=== PATIENT | male | born 1970 | race Caucasian/White ===

== ENCOUNTER 2017-01-11 14:36 | Emergency (ER) | payer MEDICAID | END 2017-01-11 15:32 | disposition home or self-care (01) | DX: J01.11 Acute recurrent frontal sinusitis (principal); R03.0 Elevated blood-pressure reading, without diagnosis of hypertension; Z87.891 Personal history of nicotine dependence ==

== ENCOUNTER 2017-04-03 09:59 | Emergency (ER) | payer MEDICAID ==
--- NOTE | 2017-04-03 10:09 | ED Physician Documentation ---
PD HPI URI - Stated complaint Stated Complaint: HEADACHE/BODY ACHES - History obtained from History obtained from: Patient - History of Present Illness Timing - onset: How many weeks ago (1) Timing duration: Weeks (1) Timing details: Gradual onset, Waxing and waning Associated symptoms: Nasal congestion, Sinus pain. No: Fever, Chills, Ear pain , Sore throat, Dry cough Contributing factors: No: Sick contact, Travel, Immunocompromised Similar symptoms before: Has not had sx before Recently seen: Not recently seen Review of Systems Constitutional: denies: Fever, Chills Ears: denies: Loss of hearing, Ear pain Nose: reports: Rhinorrhea / runny nose (clear mild), Sinus pressure / pain Throat: denies: Sore throat Respiratory: denies: Cough GI: denies: Nausea, Vomiting PD PAST MEDICAL HISTORY - Past Medical History Musculoskeletal: Chronic back pain - Past Surgical History Past Surgical History: No - Present Medications Home Medications: Ambulatory Orders Medication Instructions Recorded Confirmed Dexamethasone [Decadron] 4 mg PO DAILY #5 tablet 04/03/17 HYDROcod/ACETAM 5/325 [[place] 5/325] 1 tab PO Q6H PRN #15 tablet 04/03/17 Sodium Chloride [Saline Mist] 2 spr NS QID #1 bottle 04/03/17 - Allergies Allergies/Adverse Reactions: Allergies Allergy/AdvReac Type Severity Reaction Status Date / Time No Known Drug Allergies Allergy Verified 04/03/17 10:09 - Social History Does the pt smoke?: No Smoking Status: Former smoker Does the pt drink ETOH?: Yes Does the pt have substance abuse?: No - POLST Patient has POLST: No PD ED PE NORMAL - Vitals Vital signs reviewed: Yes - General General: 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, No acute distress, Well developed/nourished - HEENT HEENT: Ears normal, Moist mucous membranes, Pharynx benign, Other (no sinus tenderness to percussion) - Neck Neck: Supple, no meningeal sign, No adenopathy - Cardiac Cardiac: RRR, No murmur - Respiratory Respiratory: Clear bilaterally Results - Vitals Vitals: Vital Signs - 24 hr 04/03/17 04/03/17 10:07 10:49 Temperature 37.1 C Heart Rate 97 80 Respiratory 14 16 Rate Blood Pressure 125/82 H 136/77 H O2 Saturation 97 96 Oxygen O2 Source Room air PD MEDICAL DECISION MAKING - ED course Complexity details: considered differential, d/w patient Departure - Departure Disposition: 01 Home, Self Care Clinical Impression: Acute inflammation of sinus Qualifiers: Sinusitis location: frontal Recurrence: non-recurrent Qualified Code(s): J01.10 - Acute frontal sinusitis, unspecified Condition: Stable Record reviewed to determine appropriate education?: Yes Instructions: ED Sinusitis No Abx Follow-Up: Cori Kearney ARNP [Primary Care Provider] - Prescriptions: Dexamethasone [Decadron] 4 mg PO DAILY #5 tablet HYDROcod/ACETAM 5/325 [[place] 5/325] 1 tab PO Q6H PRN #15 tablet PRN Reason: Pain Sodium Chloride [Saline Mist] 2 spr NS QID #1 bottle Comments: Saline nasal spray both nostrils 4 times a day at least 2 moisturizing cleanse the nasal passage and sinus openings. Decadron daily for 5 more days to reduce inflammation. Add Tylenol or pain medicine as needed. Recheck with primary care if not better over the next 3-5 days. Recheck if you develop signs of infection. Discharge Date/Time: 04/03/17 10:49
[2017-04-03] MEDS ORDERED: DEXAMETHASONE 10 MG/ML VIAL PO STA (10:34)
[2017-04-03] MEDS ORDERED: HYDROcod/ACETAM 5/325 MG TABLET PO STA (10:34)
[2017-04-03] MEDS ORDERED: HYDROcod/ACETAM 5/325 MG TABLET ONE (10:46)
[2017-04-03] MEDS ORDERED: DEXAMETHASONE 10 MG/ML VIAL ONE (10:46)
[2017-04-03 10:51] VITALS: BP 136/77
== END 2017-04-03 10:49 | disposition home or self-care (01) ==
LOC: ED 09:59
DX: J01.10 Acute frontal sinusitis, unspecified (principal); Z87.891 Personal history of nicotine dependence
CPT/HCPCS: 99283; A9270

== ENCOUNTER 2017-04-07 10:46 | Outpatient (CLI) | payer MEDICAID ==
--- NOTE | 2017-04-07 15:50 | XRAY Report ---
COMPLETE SINUS SERIES: 04/07/2017 CLINICAL HISTORY: History of sinusitis. FINDINGS: The visualized paranasal sinuses are clear. There is no mucosal thickening or air fluid le vels. The osseous structures are intact. The nasal septum is minimally deviated towards the right. IMPRESSION: NO EVIDENCE FOR ACUTE SINUSITIS. JOB #: [id number] EXT JOB #:[id number]
== END 2017-04-07 10:47 | disposition home or self-care (01) ==
LOC: DI 10:46
PROVIDERS: ATTEND Physician Assistant
DX: J01.90 Acute sinusitis, unspecified (principal)
CPT/HCPCS: 70220

== ENCOUNTER 2017-05-01 09:51 | Emergency (ER) | payer MEDICAID ==
--- NOTE | 2017-05-01 10:45 | ED Physician Documentation ---
PD HPI UPPER EXT INJURY - Stated complaint Stated Complaint: SHOULDER PX - Chief complaint Chief Complaint: Ext Problem - History obtained from History obtained from: Patient - History of Present Illness Location: Left, Shoulder Type of injury: Other (no particular injury but does a lot of lifting and heavy work.) Timing - onset: How many weeks ago (08/24) Timing - duration: Weeks Worsened by: Moving Associated symptoms: No: Weakness, Numbness, Swelling Contributing factors: No: Anticoagulated Similar symptoms before: Has not had sx before Recently seen: Not recently seen Review of Systems Nose: denies: Rhinorrhea / runny nose, Congestion Throat: denies: Sore throat Cardiac: denies: Chest pain / pressure, Palpitations Respiratory: denies: Dyspnea, Cough Skin: denies: Rash Neurologic: denies: Focal weakness, Numbness PD PAST MEDICAL HISTORY - Past Medical History Musculoskeletal: None, Chronic back pain - Past Surgical History Past Surgical History: No Ortho: Spine surgery - Present Medications Home Medications: Ambulatory Orders Medication Instructions Recorded Confirmed Sodium Chloride [Saline Mist] 2 spr NS QID #1 bottle 04/03/17 05/01/17 Dexamethasone [Decadron] 4 mg PO DAILY #5 tablet 05/01/17 HYDROcod/ACETAM 5/325 [[place] 5/325] 1 tab PO Q6H PRN #20 tablet 05/01/17 Naproxen 375 mg PO BID #20 tablet 05/01/17 - Allergies Allergies/Adverse Reactions: Allergies Allergy/AdvReac Type Severity Reaction Status Date / Time No Known Drug Allergies Allergy Verified 05/01/17 16:23 - Social History Does the pt smoke?: No Smoking Status: Former smoker Does the pt drink ETOH?: Yes Does the pt have substance abuse?: No - Immunizations Immunizations are current?: Yes - POLST Patient has POLST: No PD ED PE NORMAL - Vitals Vital signs reviewed: Yes - General General: 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, No acute distress, Well developed/nourished - Neck Neck: Supple, no meningeal sign, No bony TTP, No adenopathy - Cardiac Cardiac: RRR, No murmur - Respiratory Respiratory: Clear bilaterally - Derm Derm: Normal color, Warm and dry, No rash - Extremities Extremities: Other (left shoulder tender posteriorly. Pain with abduction, extension and internal rotation mostly. No obvious laxity with ROM movements. No rash nor sores. Some muscular tenderness suprascapular area. Left elbow with some tenderness lateral condyle but good ROM and has full extension and supination/pronation. ) - Neuro Neuro: 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, No motor deficit, No sensory deficit, Normal speech Results - Vitals Vitals: Vital Signs - 24 hr 05/01/17 05/01/17 09:54 12:00 Temperature 36.8 C 36.7 C Heart Rate 99 76 Respiratory 16 16 Rate Blood Pressure 135/97 H 133/65 H O2 Saturation 100 99 Oxygen O2 Source Room air - Rads (name of study) shoulder Radiology: EMP read contemporaneously (no acute process noted.) PD MEDICAL DECISION MAKING - ED course Complexity details: reviewed results, considered differential (sounds like rotator cuff tendonitis (and some elbow tendonitis as well) with pain on ROM and tender at posterior shoulder. ), d/w patient Departure - Departure Disposition: 01 Home, Self Care Clinical Impression: Rotator cuff tendinitis Qualifiers: Laterality: left Qualified Code(s): M75.82 - Other shoulder lesions, left shoulder Condition: Stable Record reviewed to determine appropriate education?: Yes Instructions: ED Tendinitis Rotator Cuff Follow-Up: Gorge Cee PA-C [Primary Care Provider] - Panfilo Amaral MD [Provider Admit Priv/Credential] - Prescriptions: Dexamethasone [Decadron] 4 mg PO DAILY #5 tablet Naproxen 375 mg PO BID #20 tablet HYDROcod/ACETAM 5/325 [[place] 5/325] 1 tab PO Q6H PRN #20 tablet PRN Reason: Pain Comments: Late use with the left shoulder and arm for a week or so. However do not guard it or sling it as it may stiffen up too much. Naproxen or ibuprofen twice daily for the next 7-10 days. Add dexamethasone steroid orally for 5 days. Add Tylenol or hydrocodone if needed for pain. Recheck with your primary care or better orthopedics if not better in the next week. It sounds like some inflammation of the rotator cuff tendons. You may have some old injury and there given your description of some looseness and discomfort at times. Follow- up with orthopedics can assess whether it needs any longer term treatment. Discharge Date/Time: 05/01/17 12:23
[2017-05-01] MEDS ORDERED: DEXAMETHASONE 10 MG/ML VIAL PO STA (11:09)
[2017-05-01] MEDS ORDERED: ACETAMINOPHEN 325 MG TABLET PO STA (11:09)
[2017-05-01] MEDS ORDERED: DEXAMETHASONE 10 MG/ML VIAL ONE (11:26)
[2017-05-01] MEDS ORDERED: ACETAMINOPHEN 325 MG TABLET PO ONE (11:26)
[2017-05-01 12:24] VITALS: BP 133/65
--- NOTE | 2017-05-01 20:55 | XRAY Preliminary Report ---
Exam: XR Shoulder 3 View LT IMPRESSION: Mild degenerative changes of the acromioclavicular joint. [facility] SITE ID: [id number]
--- NOTE | 2017-05-01 20:58 | XRAY Report ---
EXAM: LEFT SHOULDER RADIOGRAPHY EXAM DATE: 05/01/2017 12:04 PM. CLINICAL HISTORY: Shoulder pain for 2-3 weeks. COMPARISON: None. TECHNIQUE: 3 views. FINDINGS: Bones: There is no evidence of fracture. Small bone island is noted in the proximal humeral shaft. Joints: Mild degenerative changes of the acromioclavicular joint. Soft tissues: The visualized hemithorax is unremarkable. No soft tissue swelling. Surgical clips in t he left neck. IMPRESSION: Mild degenerative changes of the acromioclavicular joint. [facility] Referring Provider Line: [phone] SITE ID: [id number]
== END 2017-05-01 12:23 | disposition home or self-care (01) ==
LOC: ED 09:51
DX: M75.82 Other shoulder lesions, left shoulder (principal); Z87.891 Personal history of nicotine dependence
CPT/HCPCS: 99283

== ENCOUNTER 2017-05-01 16:17 | Emergency (ER) | payer MEDICAID ==
[2017-05-01] MEDS ORDERED: diazePAM INJ 5 MG/ML SYRINGE IVP STA (16:44)
--- NOTE | 2017-05-01 16:51 | ED Physician Documentation ---
PD HPI CHEST PAIN - Stated complaint Stated Complaint: HEART RACING - Chief complaint Chief Complaint: Cardiac - History obtained from History obtained from: Patient - History of Present Illness Timing - onset: Other (Seen earlier in the day for shoulder pain and given dexamethasone. About an hour ago started to feel panicky with a rapid heart rate and shortness of breath but no chest pain, pedal edema, cough, hemoptysis or wheezing. He has had panic attacks in the before and this feels similar.) Review of Systems Constitutional: denies: Fever, Chills Cardiac: denies: Chest pain / pressure, Pedal edema, Calf pain Respiratory: denies: Cough, Hemoptysis, Wheezing PD PAST MEDICAL HISTORY - Past Medical History Past Medical History: Yes Psych: Anxiety Musculoskeletal: Chronic back pain - Past Surgical History Past Surgical History: No Ortho: Spine surgery - Present Medications Home Medications: Ambulatory Orders Medication Instructions Recorded Confirmed Sodium Chloride [Saline Mist] 2 spr NS QID #1 bottle 04/03/17 05/01/17 Dexamethasone [Decadron] 4 mg PO DAILY #5 tablet 05/01/17 HYDROcod/ACETAM 5/325 [[place] 5/325] 1 tab PO Q6H PRN #20 tablet 05/01/17 Lorazepam [Ativan] 1 mg PO TID PRN #7 tablet 05/01/17 Naproxen 375 mg PO BID #20 tablet 05/01/17 - Allergies Allergies/Adverse Reactions: Allergies Allergy/AdvReac Type Severity Reaction Status Date / Time No Known Drug Allergies Allergy Verified 05/01/17 16:23 - Social History Does the pt smoke?: No Smoking Status: Former smoker Does the pt drink ETOH?: Yes Does the pt have substance abuse?: No - Immunizations Immunizations are current?: Yes - POLST Patient has POLST: No PD ED PE NORMAL - Vitals Vital signs reviewed: Yes - General General: 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, No acute distress - Neck Neck: Supple, no meningeal sign, No bony TTP - Cardiac Cardiac: Other (Tachycardic but regular without murmur) - Respiratory Respiratory: No respiratory distress, Clear bilaterally - Abdomen Abdomen: Non tender - Extremities Extremities: No edema, No calf tenderness / cord - Neuro Neuro: 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, Normal speech - Psych Psych: Normal mood, Normal affect Results - Vitals Vitals: Vital Signs - 24 hr 05/01/17 05/01/17 16:21 16:27 Temperature 37.3 C Heart Rate 138 H Respiratory 20 Rate Blood Pressure 159/114 H Blood Pressure 159/98 H [Left] Blood Pressure 159/114 H [Right] O2 Saturation 99 Oxygen O2 Source Room air - EKG (time done) 1637 Rate: Rate (enter#) (128) Rhythm: Sinus tachycardia Energy: Normal Intervals: Normal MO QRS: Normal Ischemia: Normal ST segments Computer interpretation: Agree with computer - Labs Labs: Laboratory Tests 05/01/17 05/01/17 05/01/17 16:30 16:30 16:30 WBC 6.4 RBC 5.15 Hgb 17.0 Hct 49.9 MCV 96.8 H MCH 33.0 H MCHC 34.1 RDW 13.8 Plt Count 349 MPV 9.3 Neut # 5.4 Lymph # 0.8 L Roberts # 0.1 Eos # 0.0 Baso # 0.0 Absolute Nucleated RBC 0.00 Nucleated RBCs 0.1 Manual Slide Review Indicated Platelet Estimate NORMAL (130-450,000) Platelet Morphology 2+ GIANT PLATELETS RBC Morph Micro Appear 1+ MACROCYTOSIS Sodium 138 Potassium 3.5 Chloride 103 Carbon Dioxide 25 Anion Gap 10.0 BUN 13 Creatinine 0.8 Estimated GFR (MDRD) 104 Glucose 151 H Calcium 9.3 Total Bilirubin 0.7 AST 57 H ALT 51 Alkaline Phosphatase 100 Troponin I < 0.04 Total Protein 7.9 Albumin 4.8 Globulin 3.1 Albumin/Globulin Ratio 1.5 Lipase 35 PD MEDICAL DECISION MAKING - ED course ED course: 47-year-old gentleman presents with an apparent panic attack, no clinical evidence for PE or primary heart issue. He has a variable sinus tachycardia and felt much better after the administration of IV Valium. Modestly elevated AST was noted and he has been drinking alcohol heavily and he was advised to decrease his alcohol use. Departure - Departure Disposition: 01 Home, Self Care Clinical Impression: Sinus tachycardia, Panic attack Condition: Good Record reviewed to determine appropriate education?: Yes Instructions: ED Panic Attack Prescriptions: Lorazepam [Ativan] 1 mg PO TID PRN #7 tablet PRN Reason: Anxiety Comments: Call your doctor to arrange a follow-up appointment, make the next available appointment. In the interim, return anytime if worse or if new symptoms develop. Your blood pressure was elevated today on check into the emergency department. This does not mean that you have hypertension, it is a common phenomenon to come to the emergency department and have elevated blood pressure. I recommend that she see your primary care physician within the week to have it rechecked when you are feeling better.
[2017-05-01 17:03] LABS: ALBUMIN/GLOBULIN RATIO 1.5 (1.0-2.2); BILIRUBIN,TOTAL 0.7 mg/dL (0.2-1.0); CALCIUM 9.3 mg/dL (8.5-10.3); CREATININE 0.8 mg/dL (0.6-1.2); POTASSIUM 3.5 mmol/L (3.5-5.0); TOTAL PROTEIN 7.9 g/dL (6.7-8.2)
[2017-05-01] MEDS ORDERED: diazePAM INJ 5 MG/ML SYRINGE ONE (17:05)
[2017-05-01 17:13] LABS: BASOPHILS % (AUTO) 0.3 %; EOSINOPHILS % (AUTO) 0.1 %; HCT - HEMATOCRIT 49.9 % (42.0-52.0); LYMPHOCYTES # (AUTO) 0.8 10^3/uL (1.5-3.5); LYMPHOCYTES % (AUTO) 13.2 %; MEAN CORPUSCULAR HGB CONC 34.1 g/dL (32.0-36.0); MEAN CORPUSCULAR VOLUME 96.8 fL (80.0-94.0); MEAN PLATELET VOLUME 9.3 fL (7.4-11.4); MONOCYTES # (AUTO) 0.1 10^3/uL (0.0-1.0); MONOCYTES % (AUTO) 1.6 %; NEUTROPHILS # (AUTO) 5.4 10^3/uL (1.5-6.6); NEUTROPHILS % (AUTO) 84.8 %; NUCLEATED RED BLOOD CELLS AUTO 0.1 /100WBC; PLATELET ESTIMATE, MANUAL NORMAL (130-450,000) (NORMAL); PLATELET MORPHOLOGY 2+ GIANT PLATELETS (NORMAL); RED BLOOD COUNT 5.15 10^6/uL (4.70-6.10); RED CELL DISTRIBUTION WIDTH 13.8 % (12.0-15.0); UNCORRECTED WHITE BLOOD COUNT 6.4 x10^3/uL; WHITE BLOOD COUNT 6.4 x10^3/uL (4.8-10.8)
[2017-05-01 17:44] VITALS: BP 144/89
== END 2017-05-01 17:49 | disposition home or self-care (01) ==
LOC: ED 16:17
DX: R00.0 Tachycardia, unspecified (principal); F41.0 Panic disorder [episodic paroxysmal anxiety]; M75.82 Other shoulder lesions, left shoulder; R03.0 Elevated blood-pressure reading, without diagnosis of hypertension; G89.29 Other chronic pain; Z87.891 Personal history of nicotine dependence
CPT/HCPCS: 36415; 73030; 80053; 83690; 84484; 85025; 93005; 96374; 99283; A9270

== ENCOUNTER 2017-05-19 15:30 | Emergency (ER) | payer MEDICAID ==
--- NOTE | 2017-05-19 18:58 | ED Physician Documentation ---
PD HPI HEADACHE - Stated complaint Stated Complaint: OATES - Chief complaint Chief Complaint: Neuro - History obtained from History obtained from: Patient - History of Present Illness Timing - onset: Other (For the last few months he has been having frequent headaches, he feels like they are stress related. Sometimes he wakes up with them sometimes they are starting during the middle of the day. It is a knifelike pain that goes from his occiput through to his forehead in the middle. He is a little light sensitive when it happens but he is not nauseous. There is no associated fever. Many days he does not have a headache at all. He is under a lot of personal stress with multiple people moving into his house which is small to start with.) Review of Systems Constitutional: denies: Fever, Chills Nose: denies: Rhinorrhea / runny nose, Congestion Cardiac: denies: Chest pain / pressure, Palpitations Respiratory: denies: Dyspnea PD PAST MEDICAL HISTORY - Past Medical History Past Medical History: Yes Psych: Anxiety Musculoskeletal: Chronic back pain - Past Surgical History Past Surgical History: Yes Ortho: Spine surgery - Present Medications Home Medications: Ambulatory Orders Medication Instructions Recorded Confirmed Sodium Chloride [Saline Mist] 2 spr NS QID #1 bottle 04/03/17 05/01/17 Dexamethasone [Decadron] 4 mg PO DAILY #5 tablet 05/01/17 HYDROcod/ACETAM 5/325 [[place] 5/325] 1 tab PO Q6H PRN #20 tablet 05/01/17 Lorazepam [Ativan] 1 mg PO TID PRN #7 tablet 05/01/17 Naproxen 375 mg PO BID #20 tablet 05/01/17 Codeine/Butalbital/ASA/Caffein 1 each PO Q6H PRN #15 capsule 05/19/17 [Fiorinal with Codeine #3 Cap] - Allergies Allergies/Adverse Reactions: Allergies Allergy/AdvReac Type Severity Reaction Status Date / Time No Known Drug Allergies Allergy Verified 05/19/17 15:35 - Social History Does the pt smoke?: No Smoking Status: Never smoker Does the pt drink ETOH?: Yes Does the pt have substance abuse?: No - Immunizations Immunizations are current?: Yes - POLST Patient has POLST: No PD ED PE NORMAL - Vitals Vital signs reviewed: Yes - General General: 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, No acute distress - HEENT HEENT: PERRL, EOMI, Ears normal, Pharynx benign - Neck Neck: Supple, no meningeal sign, No bony TTP - Neuro 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: 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, 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, No motor deficit, No sensory deficit, Normal speech - Psych Psych: Normal mood, Normal affect Results - Vitals Vitals: Vital Signs - 24 hr 05/19/17 05/19/17 15:33 19:21 Temperature 37 C 37.1 C Heart Rate 87 63 Respiratory 20 16 Rate Blood Pressure 137/93 H 119/87 H O2 Saturation 99 98 Oxygen O2 Source Room air - Rads (name of study) CT Head Radiology: EMP read contemporaneously (NAD) PD MEDICAL DECISION MAKING - ED course ED course: New headaches that do not fit a pattern of subarachnoid hemorrhage or infection but could be mass so CT done and negative Departure - Departure Disposition: 01 Home, Self Care Clinical Impression: Head ache Qualifiers: Headache type: tension-type Headache chronicity pattern: acute headache Intractability: not intractable Qualified Code(s): G44.209 - Tension-type headache, unspecified, not intractable Condition: Good Record reviewed to determine appropriate education?: Yes Instructions: ED Cephalgia Unspecified Prescriptions: Codeine/Butalbital/ASA/Caffein [Fiorinal with Codeine #3 Cap] 1 each PO Q6H PRN #15 capsule PRN Reason: Headache Comments: Your blood pressure was elevated today on check into the emergency department. This does not mean that you have hypertension, it is a common phenomenon to come to the emergency department and have elevated blood pressure. I recommend that she see your primary care physician within the week to have it rechecked when you are feeling better. Call your doctor to arrange a follow-up appointment, make the next available appointment. In the interim, return anytime if worse or if new symptoms develop. Forms: Activity restrictions Discharge Date/Time: 05/19/17 20:07
[2017-05-19 19:23] VITALS: BP 119/87
--- NOTE | 2017-05-19 19:38 | CT Preliminary Report ---
Exam: CT Head W/O IMPRESSION: No acute intracranial abnormality. [facility] SITE ID: [id number]
--- NOTE | 2017-05-19 19:51 | CT Report ---
EXAM: CT HEAD EXAM DATE: 05/19/2017 07:18 p.m. CLINICAL HISTORY: New headaches. COMPARISON: None. TECHNIQUE: Multiaxial CT images were obtained from the foramen magnum to the vertex. IV contrast: Non e. Reformats: Coronal. In accordance with CT protocol optimization, one or more of the following dose reduction techniques w ere utilized for this exam: automated exposure control, adjustment of mA and/or KV based on patient s ize, or use of iterative reconstructive technique. FINDINGS: Parenchyma: No intraparenchymal hemorrhage. No evidence of mass, midline shift, or CT findings of inf arction. Smyth-white differentiation is distinct. Extraaxial Spaces: Normal for age. No subdural or epidural collections identified. Ventricles: Normal in size and position. Sinuses: Imaged paranasal sinuses, orbits, and mastoids show no significant abnormality. Bones: No evidence of fracture or calvarial defect. Other: None. IMPRESSION: No acute intracranial abnormality. [facility] Referring Provider Line: [phone] SITE ID: [id number]
== END 2017-05-19 20:07 | disposition home or self-care (01) ==
LOC: ED 15:30
DX: G44.209 Tension-type headache, unspecified, not intractable (principal); R03.0 Elevated blood-pressure reading, without diagnosis of hypertension
CPT/HCPCS: 70450; 99283

== ENCOUNTER 2017-11-26 15:23 | Emergency (ER) | payer MEDICAID ==
[2017-11-26] MEDS ORDERED: MAG HYDROX/AL HYDROX/SIMETH 30 ML UDC PO STA (15:58)
[2017-11-26] MEDS ORDERED: LIDOCAINE VISCOUS 2% 15 ML UDC MM STA (15:58)
[2017-11-26] MEDS ORDERED: ONDANSETRON ODT 4 MG TABLET TL STA (15:58)
--- NOTE | 2017-11-26 16:00 | ED Physician Documentation ---
History of Present Illness - Stated complaint Stated Complaint: COUGH, UPSET STOMACH - Chief complaint Chief Complaint: General - History obtained from History obtained from: Patient - History of Present Illness Timing: Other (For the last 6 weeks he has had an upset stomach with central abdominal pain, nausea and occasional diarrhea. It is not associated with fevers, night sweats, or weight loss. He also has nasal congestion and postnasal drip with it. He has missed a couple of days of work. Pain is worse after eating.) Review of Systems Constitutional: reports: Fatigue. denies: Fever, Chills, Myalgias, Weight Loss Nose: reports: Rhinorrhea / runny nose, Congestion Throat: reports: Sore throat Respiratory: reports: Cough GI: reports: Abdominal Pain, Nausea, Diarrhea. denies: Vomiting, Constipation, Hematemesis, Bloody / black stool PD PAST MEDICAL HISTORY - Past Medical History Cardiovascular: None Respiratory: None Neuro: None Endocrine/Autoimmune: None GI: None : None HEENT: None Psych: Anxiety Musculoskeletal: Chronic back pain Derm: None - Past Surgical History Past Surgical History: Yes Ortho: Spine surgery - Present Medications Home Medications: Ambulatory Orders Medication Instructions Recorded Confirmed HYDROcod/ACETAM 5/325 [[place] 5/325] 1 tab PO Q6H PRN #20 tablet 05/01/17 Codeine/Butalbital/ASA/Caffein 1 each PO Q6H PRN #15 capsule 05/19/17 [Fiorinal with Codeine #3 Cap] Omeprazole [PriLOSEC] 20 mg PO DAILY #14 capsule 11/26/17 - Allergies Allergies/Adverse Reactions: Allergies Allergy/AdvReac Type Severity Reaction Status Date / Time No Known Drug Allergies Allergy Verified 11/26/17 15:37 - Social History Does the pt smoke?: No Smoking Status: Never smoker Does the pt drink ETOH?: Yes Does the pt have substance abuse?: No - Immunizations Immunizations are current?: Yes - POLST Patient has POLST: No PD ED PE NORMAL - Vitals Vital signs reviewed: Yes - General General: 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, No acute distress - HEENT HEENT: PERRL, EOMI, Pharynx benign - Neck Neck: Supple, no meningeal sign, No bony TTP - Cardiac Cardiac: RRR, No murmur - Respiratory Respiratory: No respiratory distress, Clear bilaterally - Abdomen Abdomen: Normal bowel sounds, Soft, Non tender - Back Back: No CVA TTP, No spinal TTP - Derm Derm: Normal color, Warm and dry - Extremities Extremities: No edema, No calf tenderness / cord - Neuro Neuro: 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, Normal speech Results - Vitals Vitals: Vital Signs - 24 hr 11/26/17 15:33 Temperature 36.8 C Heart Rate 101 H Respiratory 16 Rate Blood Pressure 127/96 H O2 Saturation 96 Oxygen O2 Source Room air - Labs Labs: Laboratory Tests 11/26/17 11/26/17 16:14 16:14 WBC 5.1 RBC 4.59 L Hgb 15.5 Hct 44.1 MCV 96.2 H MCH 33.8 H MCHC 35.2 RDW 13.8 Plt Count 274 MPV 9.3 Neut # 2.7 Lymph # 1.8 Barry # 0.4 Eos # 0.1 Baso # 0.1 Absolute Nucleated RBC 0.01 Nucleated RBC % 0.2 WBC Morphology NORMAL APPEARANCE Platelet Estimate NORMAL (130-450,000) Platelet Morphology NORMAL APPEARANCE RBC Morph Micro Appear 1+ MACROCYTOSIS Sodium 130 L Potassium 3.8 Chloride 99 L Carbon Dioxide 23 Anion Gap 8.0 BUN 11 Creatinine 0.6 Estimated GFR (MDRD) 145 Glucose 107 H Calcium 8.4 L ALT 70 H Alkaline Phosphatase 118 Total Protein 5.5 L Albumin 3.4 Globulin 2.1 Albumin/Globulin Ratio 1.6 Lipase 30 PD MEDICAL DECISION MAKING - ED course ED course: Had excellent relief with Gi cocktail confirming gastritis or PUD. Departure - Departure Disposition: 01 Home, Self Care Clinical Impression: Abdominal pain Qualifiers: Abdominal location: generalized Qualified Code(s): R10.84 - Generalized abdominal pain Condition: Good Record reviewed to determine appropriate education?: Yes Instructions: ED PUD Vs Gastritis Prescriptions: Omeprazole [PriLOSEC] 20 mg PO DAILY #14 capsule Comments: Call your doctor to arrange a follow-up appointment, make the next available appointment. In the interim, return anytime if worse or if new symptoms develop. Your blood pressure was elevated today on check into the emergency department. This does not mean that you have hypertension, it is a common phenomenon to come to the emergency department and have elevated blood pressure. I recommend that you see your primary care physician within the week to have it rechecked when you are feeling better. Forms: Activity restrictions
[2017-11-26 16:25] LABS: BASOPHILS # (AUTO) 0.1 10^3/uL (0.0-0.1); BASOPHILS % (AUTO) 1.8 %; EOSINOPHILS # (AUTO) 0.1 10^3/uL (0.0-0.7); EOSINOPHILS % (AUTO) 1.5 %; HGB - HEMOGLOBIN 15.5 g/dL (14.0-18.0); LYMPHOCYTES # (AUTO) 1.8 10^3/uL (1.5-3.5); LYMPHOCYTES % (AUTO) 35.9 %; MEAN CORPUSCULAR HEMOGLOBIN 33.8 pg (27.0-31.0); MEAN CORPUSCULAR HGB CONC 35.2 g/dL (32.0-36.0); MEAN CORPUSCULAR VOLUME 96.2 fL (80.0-94.0); MEAN PLATELET VOLUME 9.3 fL (7.4-11.4); MONOCYTES # (AUTO) 0.4 10^3/uL (0.0-1.0); MONOCYTES % (AUTO) 7.6 %; NEUTROPHILS # (AUTO) 2.7 10^3/uL (1.5-6.6); NEUTROPHILS % (AUTO) 53.2 %; PLT - PLATELET COUNT 274 10^3/uL (130-450); RED BLOOD COUNT 4.59 10^6/uL (4.70-6.10); RED CELL DISTRIBUTION WIDTH 13.8 % (12.0-15.0); WHITE BLOOD COUNT 5.1 x10^3/uL (4.8-10.8)
[2017-11-26 16:56] LABS: PLATELET MORPHOLOGY NORMAL APPEARANCE (NORMAL)
[2017-11-26 16:57] LABS: PLATELET ESTIMATE, MANUAL NORMAL (130-450,000) (NORMAL); RBC MORPHOLOGY (MULTIPLE) 1+ MACROCYTOSIS (NORMAL)
[2017-11-26] MEDS ORDERED: PANTOPRAZOLE 40 MG TABLET PO STA (17:00)
[2017-11-26 17:02] LABS: ALBUMIN 3.4 g/dL (3.2-5.5); ALBUMIN/GLOBULIN RATIO 1.6 (1.0-2.2); CALCIUM 8.4 mg/dL (8.5-10.3); CREATININE 0.6 mg/dL (0.6-1.2); TOTAL PROTEIN 5.5 g/dL (6.7-8.2)
[2017-11-26 17:23] LABS: BILIRUBIN,TOTAL 0.7 mg/dL (0.2-1.0)
[2017-11-26 17:24] VITALS: BP 127/109
== END 2017-11-26 17:27 | disposition home or self-care (01) ==
LOC: ED 15:23
DX: R10.84 Generalized abdominal pain (principal); R05 Cough; R11.0 Nausea; R03.0 Elevated blood-pressure reading, without diagnosis of hypertension
CPT/HCPCS: 36415; 80053; 83690; 85025; 99283; A9270; Q0162

== ENCOUNTER 2017-12-09 10:05 | Emergency (ER) | payer MEDICAID ==
[2017-12-09] MEDS ORDERED: MAG HYDROX/AL HYDROX/SIMETH 30 ML UDC PO STA (11:35)
[2017-12-09] MEDS ORDERED: LIDOCAINE VISCOUS 2% 15 ML UDC MM STA (11:36)
[2017-12-09] MEDS ORDERED: PHENobarb/HYOSCY/ATROPINE/SCOP 5 ML UDC PO STA (11:36)
--- NOTE | 2017-12-09 12:06 | ED Physician Documentation ---
PD HPI ABD PAIN - Stated complaint Stated Complaint: ABD PX/COUGH/BODY PX - Chief complaint Chief Complaint: Abd Pain - History obtained from History obtained from: Patient - History of Present Illness Timing - duration: Days (Several) Timing - details: Waxing and waning Quality: Pain Location: Epigastric Improved by: Position Associated symptoms: Fever, Nausea. No: Vomiting Recently seen: Emergency Dept (He was seen in the emergency department 2 weeks ago and was diagnosed with peptic ulcer disease.) - Additional information Additional information: The patient is a 47-year-old male who presents with epigastric abdominal pain that he has had intermittently for several days. His pain is worse with coughing or with supine position, but improves when he raises his arms over his head. He reports associated nausea, without vomiting. He reports nonproductive cough for the past 3 days. He also reports chills, and myalgias. He denies shortness of breath or dysuria. He reports similar abdominal pain intermittently for the past month. He was seen in the emergency department here 2 weeks ago and was prescribed omeprazole for gastritis versus peptic ulcer disease. Review of Systems Constitutional: reports: Fever, Chills, Myalgias Ears: denies: Tinnitus/ringing Nose: reports: Congestion Throat: denies: Sore throat Cardiac: denies: Chest pain / pressure Respiratory: reports: Cough (nonproductive). denies: Dyspnea GI: reports: Abdominal Pain (epigastric), Nausea. denies: Vomiting, Diarrhea : denies: Dysuria Skin: denies: Rash Musculoskeletal: denies: Back pain, Extremity swelling Neurologic: denies: Headache PD PAST MEDICAL HISTORY - Past Medical History Past Medical History: Yes Cardiovascular: None Respiratory: None Neuro: None Endocrine/Autoimmune: None GI: Ulcers : None HEENT: None Psych: Anxiety Musculoskeletal: Chronic back pain Derm: None - Past Surgical History Past Surgical History: Yes Ortho: Spine surgery - Present Medications Home Medications: Ambulatory Orders Medication Instructions Recorded Confirmed HYDROcod/ACETAM 5/325 [[place] 5/325] 1 tab PO Q6H PRN #20 tablet 05/01/17 Codeine/Butalbital/ASA/Caffein 1 each PO Q6H PRN #15 capsule 05/19/17 [Fiorinal with Codeine #3 Cap] Omeprazole [PriLOSEC] 20 mg PO DAILY #14 capsule 11/26/17 Omeprazole [PriLOSEC] 20 mg PO DAILY #14 capsule 12/09/17 - Allergies Allergies/Adverse Reactions: Allergies Allergy/AdvReac Type Severity Reaction Status Date / Time No Known Drug Allergies Allergy Verified 11/26/17 15:37 - Social History Does the pt smoke?: No Smoking Status: Former smoker (Quit smoking one year ago.) Does the pt drink ETOH?: Yes Does the pt have substance abuse?: No - Immunizations Immunizations are current?: Yes - POLST Patient has POLST: No PD ED PE NORMAL - Vitals Vital signs reviewed: Yes (Hypertensive.) - General General: 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 - HEENT HEENT: Atraumatic, Moist mucous membranes, Pharynx benign - Neck Neck: No adenopathy, No JVD - Cardiac Cardiac: RRR, No murmur - Respiratory Respiratory: No respiratory distress, Clear bilaterally - Abdomen Abdomen: Normal bowel sounds, Soft, No organomegaly, Other (Epigastric tenderness to palpation, without rebound or guarding.) - Back Back: No CVA TTP - Derm Derm: No rash - Extremities Extremities: No edema, No calf tenderness / cord - Neuro Neuro: 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, No motor deficit, Normal speech Results - Vitals Vitals: Oxygen O2 Source Room air PD MEDICAL DECISION MAKING - ED course Complexity details: reviewed old records, re-evaluated patient, considered differential, d/w patient, d/w family ED course: The patient's presentation is most consistent with gastritis versus peptic ulcer disease. I doubt pancreatitis or gallbladder disease. His examination does not suggest pulmonary or cardiac etiology. Treatment in the emergency department included administration of GI cocktail which relieved the patient's symptoms. He is being discharged with prescription for omeprazole. I discussed with him and his the diagnosis, treatment and outpatient follow-up, as well as potentially worrisome signs or symptoms that should prompt reevaluation in the emergency department. Departure - Departure Disposition: 01 Home, Self Care Clinical Impression: Gastritis Qualifiers: Gastritis type: unspecified gastritis Chronicity: acute Gastritis bleeding: without bleeding Qualified Code(s): K29.00 - Acute gastritis without bleeding Condition: Stable Instructions: ED PUD Vs Gastritis Follow-Up: Cori Kearney ARNP [Primary Care Provider] - Prescriptions: Omeprazole [PriLOSEC] 20 mg PO DAILY #14 capsule Comments: Take Prilosec daily as prescribed. You can use liquid antacid, such as Maalox or Mylanta if you develop recurrent symptoms. Minimize alcohol, monster, greasy or spicy foods, such as pizza. Follow up with your primary physician within 2 weeks. Call to schedule appointment. Return to the emergency department if you develop increasing abdominal pain, persistent vomiting, or otherwise worsening symptoms. Discharge Date/Time: 12/09/17 12:14
[2017-12-09 12:16] VITALS: BP 132/104
== END 2017-12-09 12:14 | disposition home or self-care (01) ==
LOC: ED 10:05
DX: K29.00 Acute gastritis without bleeding (principal); Z87.11 Personal history of peptic ulcer disease; Z87.891 Personal history of nicotine dependence
CPT/HCPCS: 99283; A9270

== ENCOUNTER 2018-02-17 10:04 | Emergency (ER) | payer MEDICAID ==
[2018-02-17 10:16] VITALS: BP 146/97
--- NOTE | 2018-02-17 10:36 | XRAY Report ---
Procedure Date: 02/17/2018 Accession Number: [id number] / [id number] Procedure: XR - Hand 3 View LT CPT Code: FULL RESULT: EXAM: LEFT HAND RADIOGRAPHY EXAM DATE: 02/17/2018 10:28 AM. CLINICAL HISTORY: Hit hand against car door 3 weeks ago. Pain most pronounced in the third MCP joint. COMPARISON: None. TECHNIQUE: 3 views. FINDINGS: Bones: No acute or healing fracture. Joints: Mild degenerative change at the second and third MCP joints. No dislocation. Soft Tissues: No significant abnormality. IMPRESSION: No fracture or dislocation. RADIA
--- NOTE | 2018-02-17 12:16 | ED Physician Documentation ---
PD HPI UPPER EXT INJURY - Stated complaint Stated Complaint: L HAND INJ - Chief complaint Chief Complaint: Ext Problem - History obtained from History obtained from: Patient - History of Present Illness Location: Left, Hand Type of injury: Other (hit a car door with the back of his hand 3 weeks ago) Where injury occurred: Street Timing - onset: How many weeks ago (3) Timing - duration: Weeks (3) Timing - details: Abrupt onset Pain level max: 7 Pain level now: 5 Improved by: Rest Worsened by: Moving, Palpating Associated symptoms: Numbness (around the 3rd MCP joint), Swelling (mild). No: Weakness, Tingling Contributing factors: No: Anticoagulated, Prior ortho surgery Recently seen: Not recently seen - Additonal information Additional information: pt is right handed Review of Systems Skin: denies: Rash Musculoskeletal: denies: Neck pain, Back pain PD PAST MEDICAL HISTORY - Past Medical History Past Medical History: Yes Cardiovascular: None Respiratory: None Endocrine/Autoimmune: None GI: Ulcers : None HEENT: None Psych: Anxiety Musculoskeletal: Chronic back pain Derm: None - Past Surgical History Past Surgical History: Yes Ortho: Spine surgery - Present Medications Home Medications: Ambulatory Orders Medication Instructions Recorded Confirmed Citalopram Hydrobromide 20 mg ORAL DAILY 02/17/18 02/17/18 [Citalopram HBr] - Allergies Allergies/Adverse Reactions: Allergies Allergy/AdvReac Type Severity Reaction Status Date / Time No Known Drug Allergies Allergy Verified 02/17/18 10:16 - Social History Does the pt smoke?: No Smoking Status: Never smoker Does the pt drink ETOH?: Yes ETOH Use: Wine Does the pt have substance abuse?: No - Immunizations Immunizations are current?: Yes - POLST Patient has POLST: No PD ED PE NORMAL - Vitals Vital signs reviewed: Yes - General General: 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, No acute distress - HEENT HEENT: Moist mucous membranes - Neck Neck: Supple, no meningeal sign - Cardiac Cardiac: RRR - Derm Derm: Warm and dry - Extremities Extremities: Other (L hand - mild swelling and TTP over the 3rd MCP. mild numbess over the dorsum of the 3rd MCP joint. NVI. FROM present. tendons intact , tested against resistance. no deformity. ) - Neuro Neuro: 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 Results - Vitals Vitals: Vital Signs - 24 hr 02/17/18 10:13 Temperature 36.4 C L Heart Rate 74 Respiratory 16 Rate Blood Pressure 146/97 H O2 Saturation 100 Oxygen O2 Source Room air - Rads (name of study) L hand xray Radiology: Prelim report reviewed, EMP read contemporaneously, See rad report ( normal) PD MEDICAL DECISION MAKING - ED course Complexity details: reviewed results, re-evaluated patient, considered differential, d/w patient ED course: Patient is a 47-year-old male with left hand contusion, mild numbness around the left third metacarpal. Neurovascularly intact otherwise. Normal x-ray. Placed in a finger splint to immobilize the joint. No evidence of tendon injury , no fracture or dislocation. Patient counseled regarding signs and symptoms for which I believe and urgent re-evaluation would be necessary. Patient with good understanding of and agreement to plan and is comfortable going home at this time This document was made in part using voice recognition software. While efforts are made to proofread this document, sound alike and grammatical errors may occur. - Sepsis Event Vital Signs: Vital Signs - 24 hr 02/17/18 10:13 Temperature 36.4 C L Heart Rate 74 Respiratory 16 Rate Blood Pressure 146/97 H O2 Saturation 100 Oxygen O2 Source Room air Departure - Departure Disposition: 01 Home, Self Care Clinical Impression: Contusion, hand Qualifiers: Encounter type: initial encounter Laterality: left Qualified Code(s): S60.222A - Contusion of left hand, initial encounter Condition: Good Instructions: ED Contusion Hand Follow-Up: Cori Kearney ARNP [Primary Care Provider] - Within 1 week Comments: This should improve over the next few weeks, however the numbness may last up to 6 months. Please return if you worsen. Your x-rays are normal today. Wear the splint for comfort for the next 3-4 days.
== END 2018-02-17 12:32 | disposition home or self-care (01) ==
LOC: ED 10:04
DX: S60.222A Contusion of left hand, initial encounter (principal); W22.09XA Striking against other stationary object, initial encounter; Z87.11 Personal history of peptic ulcer disease
CPT/HCPCS: 99282

== ENCOUNTER 2018-05-04 09:52 | Emergency (ER) | payer MEDICAID ==
[2018-05-04 10:28] VITALS: BP 140/100
--- NOTE | 2018-05-04 12:02 | ED Physician Documentation ---
History of Present Illness - Stated complaint Stated Complaint: NECK PX - Chief complaint Chief Complaint: Trauma Hd/Nk - History obtained from History obtained from: Patient - History of Present Illness Timing: Other (Last 4 months or so without specific injury this 48-year-old otherwise healthy gentleman has had left-sided neck pain with difficulty rotating the neck. It does not hurt every day, but may be 5 days a week. When it is bad he has a lot of stiffness and difficulty rotating the neck especially to the left. Is no associated weakness, numbness, tingling, or radiation into the left arm but he sometimes gets radiation into the left shoulder.) Review of Systems Constitutional: denies: Fever, Chills Throat: denies: Dental pain / toothache, Sore throat Cardiac: denies: Chest pain / pressure, Palpitations Respiratory: denies: Dyspnea, Cough PD PAST MEDICAL HISTORY - Past Medical History Cardiovascular: None Respiratory: None Endocrine/Autoimmune: None GI: Ulcers : None HEENT: None Psych: Anxiety Musculoskeletal: Chronic back pain Derm: None - Past Surgical History Past Surgical History: Yes Ortho: Spine surgery - Present Medications Home Medications: Ambulatory Orders Medication Instructions Recorded Confirmed Citalopram Hydrobromide 20 mg ORAL DAILY 02/17/18 02/17/18 [Citalopram HBr] Cyclobenzaprine [Flexeril] 10 mg PO TID PRN #20 tablet 05/04/18 Ibuprofen [Motrin] 800 mg PO Q8H PRN #30 tablet 05/04/18 - Allergies Allergies/Adverse Reactions: Allergies Allergy/AdvReac Type Severity Reaction Status Date / Time No Known Drug Allergies Allergy Verified 02/17/18 10:16 - Social History Does the pt smoke?: No Smoking Status: Former smoker Does the pt drink ETOH?: Yes Does the pt have substance abuse?: No - Immunizations Immunizations are current?: Yes - POLST Patient has POLST: No PD ED PE NORMAL - Vitals Vital signs reviewed: Yes - General General: 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, No acute distress - Neck Neck: Supple, no meningeal sign, No bony TTP, Other (Tender over the left sternocleidomastoid, Winces with leftward neck rotation. No problems with flexion or extension.) - Neuro Neuro: Other (He has equal bilateral insulation technician strength, thumb extension, interosseous strength, and flexion and extension of the wrist with equal and normal sensation throughout the upper extremities.) Results - Vitals Vitals: Vital Signs - 24 hr 05/04/18 10:25 Temperature 36.2 C L Heart Rate 75 Respiratory 16 Rate Blood Pressure 140/100 H O2 Saturation 97 Oxygen O2 Source Room air PD MEDICAL DECISION MAKING - Sepsis Event Vital Signs: Vital Signs - 24 hr 05/04/18 10:25 Temperature 36.2 C L Heart Rate 75 Respiratory 16 Rate Blood Pressure 140/100 H O2 Saturation 97 Oxygen O2 Source Room air Departure - Departure Disposition: Home, Self Care Clinical Impression: Sternocleidomastoid muscle tenderness Condition: Good Record reviewed to determine appropriate education?: Yes Instructions: ED Neck Back Pain General Prescriptions: Cyclobenzaprine [Flexeril] 10 mg PO TID PRN #20 tablet PRN Reason: Spasms Ibuprofen [Motrin] 800 mg PO Q8H PRN #30 tablet PRN Reason: PAIN &/OR FEVER Comments: Follow-up with your doctor next week as scheduled. Return if worse. Follow-up discussed potentially referral to physical therapy. Your blood pressure was elevated today on check into the emergency department. This does not mean that you have hypertension, it is a common phenomenon to come to the emergency department and have elevated blood pressure. I recommend that you see your primary care physician within the week to have it rechecked when you are feeling better. Forms: Activity restrictions
== END 2018-05-04 12:13 | disposition home or self-care (01) ==
LOC: ED 09:52
DX: M62.89 Other specified disorders of muscle (principal); R03.0 Elevated blood-pressure reading, without diagnosis of hypertension; Z87.891 Personal history of nicotine dependence
CPT/HCPCS: 99283

== ENCOUNTER 2018-12-28 15:39 | Emergency (ER) | payer MEDICAID ==
[2018-12-28 15:49] VITALS: BP 161/98
[2018-12-28] MEDS ORDERED: ONDANSETRON 4 MG/2 ML VIAL IVP STA (15:59)
[2018-12-28] MEDS ORDERED: SODIUM CHLORIDE 0.9% 1,000 ML IV ONE (15:59)
[2018-12-28] MEDS ORDERED: HYDROmorphone 1 MG/ML CARPUJECT IVP STA (15:59)
--- NOTE | 2018-12-28 16:01 | ED Physician Documentation ---
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 - Chief complaint Chief Complaint: Laceration PD PAST MEDICAL HISTORY - Past Medical History Cardiovascular: None Respiratory: None Endocrine/Autoimmune: None GI: Ulcers : None HEENT: None Psych: Anxiety Musculoskeletal: Chronic back pain Derm: None - Past Surgical History Past Surgical History: Yes Ortho: Spine surgery - Present Medications Home Medications: Ambulatory Orders Medication Instructions Recorded Confirmed Citalopram Hydrobromide 20 mg ORAL DAILY 02/17/18 02/17/18 [Citalopram HBr] Cyclobenzaprine [Flexeril] 10 mg PO TID PRN #20 tablet 05/04/18 Ibuprofen [Motrin] 800 mg PO Q8H PRN #30 tablet 05/04/18 - Allergies Allergies/Adverse Reactions: Allergies Allergy/AdvReac Type Severity Reaction Status Date / Time No Known Drug Allergies Allergy Verified 12/28/18 15:57 - Social History Does the pt smoke?: No Smoking Status: Never smoker Does the pt drink ETOH?: Yes ETOH Use: Wine Does the pt have substance abuse?: No - Immunizations Immunizations are current?: Yes - POLST Patient has POLST: No Results - Vitals Vitals: Vital Signs - 24 hr 12/28/18 15:43 Temperature 36.6 C Heart Rate 93 Respiratory 20 Rate Blood Pressure 161/98 H O2 Saturation 100 Oxygen O2 Source Room air
--- NOTE | 2018-12-28 16:16 | ED Physician Documentation ---
PD HPI UPPER EXT INJURY - Stated complaint Stated Complaint: R POINTER FINGER LAC - Chief complaint Chief Complaint: Laceration - History obtained from History obtained from: Patient - History of Present Illness Location: Right, Finger (index) Type of injury: Laceration Where injury occurred: Home Timing - onset: Last night Timing - duration: Hours Timing - details: Abrupt onset, Still present Improved by: Rest, Immobilization Worsened by: Moving, Palpating Associated symptoms: No: Weakness, Numbness, Tingling, Swelling Contributing factors: No: Anticoagulated Similar symptoms before: Has not had sx before Recently seen: Not recently seen - Additonal information Additional information: Previously well 48-year-old male was using a kitchen knife last night when he lacerated the tip of his right index finger. He cut a scab of skin off he has had some trouble controlling the bleeding entirely. Review of Systems Constitutional: denies: Fever Eyes: denies: Decreased vision Ears: denies: Ear pain Nose: denies: Congestion Respiratory: denies: Cough GI: denies: Vomiting Skin: reports: Laceration (s). denies: Rash Musculoskeletal: reports: Extremity pain. denies: Neck pain, Back pain Neurologic: denies: Generalized weakness, Focal weakness, Numbness PD PAST MEDICAL HISTORY - Past Medical History Cardiovascular: None Respiratory: None Endocrine/Autoimmune: None GI: Ulcers : None HEENT: None Psych: Anxiety Musculoskeletal: Chronic back pain Derm: None - Past Surgical History Past Surgical History: Yes Ortho: Spine surgery - Present Medications Home Medications: Ambulatory Orders Medication Instructions Recorded Confirmed Citalopram Hydrobromide 20 mg ORAL DAILY 02/17/18 02/17/18 [Citalopram HBr] Cyclobenzaprine [Flexeril] 10 mg PO TID PRN #20 tablet 05/04/18 Ibuprofen [Motrin] 800 mg PO Q8H PRN #30 tablet 05/04/18 - Allergies Allergies/Adverse Reactions: Allergies Allergy/AdvReac Type Severity Reaction Status Date / Time No Known Drug Allergies Allergy Verified 12/28/18 15:57 - Social History Does the pt smoke?: No Smoking Status: Never smoker Does the pt drink ETOH?: Yes ETOH Use: Wine Does the pt have substance abuse?: No - Immunizations Immunizations are current?: Yes - POLST Patient has POLST: No PD ED PE NORMAL - Vitals Vital signs reviewed: Yes (hypertensive ) - General General: 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, No acute distress, Well developed/nourished - HEENT HEENT: Atraumatic, PERRL, EOMI - Respiratory Respiratory: No respiratory distress - Derm Derm: Normal color, Warm and dry, No rash - Extremities Extremities: No deformity, No edema, Other (To the tip of the right index finger there is a skive of skin missing to the tip, about 1cm elipse) - Neuro Neuro: 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, No motor deficit, No sensory deficit, Normal speech Eye Opening: Spontaneous Motor: Obeys Commands Verbal: Oriented GCS Score: 15 - Psych Psych: Normal mood, Normal affect Results - Vitals Vitals: Vital Signs - 24 hr 12/28/18 15:43 Temperature 36.6 C Heart Rate 93 Respiratory 20 Rate Blood Pressure 161/98 H O2 Saturation 100 Oxygen O2 Source Room air PD MEDICAL DECISION MAKING - ED course Complexity details: considered differential, d/w patient ED course: 48-year-old male with a skin is given to the right index finger was treated conservatively with Gelfoam and tube gauze. Departure - Departure Disposition: 01 Home, Self Care Clinical Impression: Avulsion of skin of finger Qualifiers: Encounter type: initial encounter Qualified Code(s): S61.209A - Unspecified open wound of unspecified finger without damage to nail, initial encounter Condition: Stable Instructions: ED Avulsion Dermal Follow-Up: Cori Kearney ARNP [Primary Care Provider] -
== END 2018-12-28 16:30 | disposition home or self-care (01) ==
LOC: ED 15:39
DX: S61.210A Laceration without foreign body of right index finger without damage to nail, initial encounter (principal); W26.0XXA Contact with knife, initial encounter; Y92.000 Kitchen of unspecified non-institutional (private) residence as the place of occurrence of the external cause
CPT/HCPCS: 80053; 83690; 85025; 99283

== ENCOUNTER 2019-04-11 17:13 | Emergency (ER) | payer MEDICAID ==
[2019-04-11 18:30] VITALS: BP 134/72
--- NOTE | 2019-04-11 18:44 | ED Physician Documentation ---
History of Present Illness - Stated complaint Stated Complaint: TOE SWOLLEN - Chief complaint Chief Complaint: Trauma Ext - Additonal information Additional information: This is a 48-year-old male who presents with right great toe pain. Last night he was walking and he caught his toe in a crocheted blanket and sounds like it flexed forward and he stubbed it. He had immediate pain and swelling. Today it is quite bruised and it has continued to hurt. He has been taking ibuprofen for pain and that relieves it somewhat. He denies injury elsewhere Review of Systems Skin: reports: Other (+bruising on toe) Musculoskeletal: reports: Extremity pain PD PAST MEDICAL HISTORY - Past Medical History Cardiovascular: None Respiratory: None Endocrine/Autoimmune: None GI: Ulcers : None HEENT: None Psych: Anxiety Musculoskeletal: Chronic back pain Derm: None - Past Surgical History Past Surgical History: Yes Ortho: Spine surgery - Present Medications Home Medications: Ambulatory Orders Medication Instructions Recorded Confirmed Citalopram Hydrobromide 20 mg ORAL DAILY 02/17/18 02/17/18 [Citalopram HBr] Cyclobenzaprine [Flexeril] 10 mg PO TID PRN #20 tablet 05/04/18 Ibuprofen [Motrin] 800 mg PO Q8H PRN #30 tablet 05/04/18 - Allergies Allergies/Adverse Reactions: Allergies Allergy/AdvReac Type Severity Reaction Status Date / Time No Known Drug Allergies Allergy Verified 12/28/18 15:57 - Social History Does the pt smoke?: No Smoking Status: Never smoker Does the pt drink ETOH?: Yes Does the pt have substance abuse?: No - Immunizations Immunizations are current?: Yes - POLST Patient has POLST: No PD ED PE NORMAL - Vitals Vital signs reviewed: Yes - General General: 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, No acute distress - HEENT HEENT: Atraumatic - Cardiac Cardiac: Other (Well perfused skin and extremities) - Abdomen Abdomen: Non distended - Derm Derm: Warm and dry - Extremities Extremities: Other (The right great toe is swollen With ecchymosis at the base. Patient able to wiggle it with pain. Sensation light touch is intact, and cap illary refill is intact. 2+ DP pulse. No pain over the midfoot, heel, or ankle. The tenderness is isolated over the right great toe. There are no lacerations, no subungual hemotoma) - Neuro Neuro: 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 - Psych Psych: Normal mood, Normal affect Results - Vitals Vitals: Vital Signs - 24 hr 04/11/19 04/11/19 17:38 18:28 Temperature 36.5 C 36.7 C Heart Rate 87 60 Respiratory 14 60 H Rate Blood Pressure 130/94 H 134/72 H O2 Saturation 97 100 Oxygen O2 Source Room air PD MEDICAL DECISION MAKING - ED course Complexity details: considered differential (Fracture, sprain, strain, contusion, dislocation) ED course: Patient presents with isolated toe pain. Extremity is neurovascularly intact. XR was obtained, I discussed that I did not see signs of an obvious fracture or dislocation, however prior to the final read patient left because he had to olive picker his . I had begun discussing supportive care with the patient, but I was unable to provide final discharge instructions prior to him leaving the ED. Departure - Departure Disposition: ED Elope Clinical Impression: Toe pain Qualifiers: Laterality: unspecified laterality Qualified Code(s): M79.676 - Pain in unspecified toe(s) Condition: Stable Discharge Date/Time: 04/11/19 20:00
--- NOTE | 2019-04-11 19:56 | XRAY Report ---
Reason: Pain in great toe after trauma Procedure Date: 04/11/2019 Accession Number: [id number] / [id number] Procedure: XR - Toe(s) RT CPT Code: FULL RESULT: EXAM: RIGHT TOE RADIOGRAPHY EXAM DATE: 04/11/2019 07:18 PM. CLINICAL HISTORY: Pain in great toe after trauma. COMPARISON: None. TECHNIQUE: 3 views. FINDINGS: Bones: Normal. No fracture or bone lesion. Small, periarticular accessory ossicles or sequela of remote injury. Joints: Normal. No subluxations. Soft Tissues: Normal. No soft tissue swelling. IMPRESSION: No acute fracture or dislocation. RADIA
== END 2019-04-11 20:00 | disposition left against medical advice (07) ==
LOC: ED 17:13
DX: M79.674 Pain in right toe(s) (principal); X50.1XXA Overexertion from prolonged static or awkward postures, initial encounter; Y93.01 Activity, walking, marching and hiking
CPT/HCPCS: 73660; 99282; 99283

== ENCOUNTER 2019-08-04 09:42 | Emergency (ER) | payer MEDICAID ==
--- NOTE | 2019-08-04 11:04 | ED Physician Documentation ---
PD HPI URI - Stated complaint Stated Complaint: COUGHING/HEADACHE - Chief complaint Chief Complaint: General - History obtained from History obtained from: Patient - History of Present Illness Timing - onset: How many weeks ago (1) Timing duration: Weeks (1) Timing details: Gradual onset Pain level max: 5 Pain level now: 5 Associated symptoms: Nasal congestion, Rhinorrhea, Dry cough, NVD (diarrhea, no vomiting). No: Fever, Chills, Dyspnea Contributing factors: Sick contact Improves by: Rest Worsened by: Activity, Breathing Recently seen: Not recently seen Review of Systems Constitutional: denies: Fever Nose: reports: Rhinorrhea / runny nose, Congestion Throat: reports: Sore throat Cardiac: denies: Chest pain / pressure Respiratory: reports: Cough GI: reports: Diarrhea. denies: Vomiting Skin: denies: Rash Musculoskeletal: denies: Neck pain, Back pain Neurologic: reports: Headache (Intermittent, throbbing). denies: Focal wea kness, Numbness, Confused PD PAST MEDICAL HISTORY - Past Medical History Cardiovascular: Hypertension Respiratory: None Endocrine/Autoimmune: None GI: Ulcers : None HEENT: None Psych: Anxiety Musculoskeletal: Chronic back pain Derm: None - Past Surgical History Past Surgical History: Yes Ortho: Spine surgery - Present Medications Home Medications: Ambulatory Orders Medication Instructions Recorded Confirmed Citalopram Hydrobromide 20 mg ORAL DAILY 02/17/18 02/17/18 [Citalopram HBr] Cyclobenzaprine [Flexeril] 10 mg PO TID PRN #20 tablet 05/04/18 Ibuprofen [Motrin] 800 mg PO Q8H PRN #30 tablet 05/04/18 Benzonatate 200 mg PO Q8H PRN #30 capsule 08/04/19 Cetirizine HCl/Pseudoephedrine 1 each PO BID PRN #30 tab.er.12h 08/04/19 [Zyrtec-D Tablet] - Allergies Allergies/Adverse Reactions: Allergies Allergy/AdvReac Type Severity Reaction Status Date / Time No Known Drug Allergies Allergy Verified 08/04/19 09:48 - Social History Does the pt smoke?: No Smoking Status: Former smoker Does the pt drink ETOH?: Yes ETOH Use: Wine Does the pt have substance abuse?: No - Immunizations Immunizations are current?: Yes - POLST Patient has POLST: No PD ED PE NORMAL - Vitals Vital signs reviewed: Yes - General General: 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, No acute distress, Well developed/nourished - HEENT HEENT: PERRL, Ears normal, Moist mucous membranes, Pharynx benign - Neck Neck: Supple, no meningeal sign - Cardiac Cardiac: RRR, Strong equal pulses - Respiratory Respiratory: No respiratory distress, Clear bilaterally - Abdomen Abdomen: Soft, Non tender, Non distended - Derm Derm: Warm and dry, No rash - Neuro Neuro: 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 - Psych Psych: Normal mood, Normal affect Results - Vitals Vitals: Vital Signs - 24 hr 08/04/19 08/04/19 09:48 11:07 Temperature 37.1 C 36.7 C Heart Rate 78 83 Respiratory 17 17 Rate Blood Pressure 156/109 H 151/96 H O2 Saturation 98 97 Oxygen O2 Source Room air PD MEDICAL DECISION MAKING - ED course Complexity details: reviewed results, re-evaluated patient, considered differential, d/w patient ED course: Patient appears to have a viral syndrome. He is well-appearing, nontoxic. Afebrile. No hypoxia. No evidence of pneumonia clinically. We will have him follow-up with his doctor for further care. Patient counseled regarding signs and symptoms for which I believe and urgent re-evaluation would be necessary. Patient with good understanding of and agreement to plan and is comfortable going home at this time This document was made in part using voice recognition software. While efforts are made to proofread this document, sound alike and grammatical errors may occur. Departure - Departure Disposition: 01 Home, Self Care Clinical Impression: Viral syndrome Condition: Good Instructions: ED Viral Syndrome Follow-Up: Cori Kearney ARNP [Primary Care Provider] - Within 1 week Prescriptions: Benzonatate 200 mg PO Q8H PRN #30 capsule PRN Reason: Cough Cetirizine HCl/Pseudoephedrine [Zyrtec-D Tablet] 1 each PO BID PRN #30 tab.er.12h PRN Reason: nasal congestion Comments: Return if you worsen. Follow up with your doctor if not better in 1-2 weeks Discharge Date/Time: 08/04/19 11:08
[2019-08-04 11:08] VITALS: BP 151/96
== END 2019-08-04 11:08 | disposition home or self-care (01) ==
LOC: ED 09:42
DX: B34.9 Viral infection, unspecified (principal); I10 Essential (primary) hypertension; Z87.891 Personal history of nicotine dependence
CPT/HCPCS: 99282; 99284

== ENCOUNTER 2019-12-25 08:00 | Outpatient (CLI) | payer MEDICAID ==
[2019-12-25 17:53] LABS: BASOPHILS % (AUTO) 0.6 %; EOSINOPHILS % (AUTO) 0.6 %; HGB - HEMOGLOBIN 15.9 g/dL (14.0-18.0); LYMPHOCYTES # (AUTO) 1.3 10^3/uL (1.5-3.5); LYMPHOCYTES % (AUTO) 27.2 %; MEAN CORPUSCULAR HEMOGLOBIN 35.4 pg (27.0-31.0); MEAN CORPUSCULAR HGB CONC 34.9 g/dL (32.0-36.0); MEAN CORPUSCULAR VOLUME 101.3 fL (80.0-94.0); MEAN PLATELET VOLUME 11.2 fL (7.4-11.4); MONOCYTES # (AUTO) 0.4 10^3/uL (0.0-1.0); MONOCYTES % (AUTO) 7.9 %; NEUTROPHILS # (AUTO) 2.9 10^3/uL (1.5-6.6); NEUTROPHILS % (AUTO) 63.1 %; PLT - PLATELET COUNT 318 10^3/uL (130-450); RED BLOOD COUNT 4.49 10^6/uL (4.70-6.10); RED CELL DISTRIBUTION WIDTH 13.6 % (12.0-15.0); WHITE BLOOD COUNT 4.7 x10^3/uL (4.8-10.8)
[2019-12-25 19:12] LABS: ALBUMIN 4.1 g/dL (3.2-5.5); ALBUMIN/GLOBULIN RATIO 1.4 (1.0-2.2); ALKALINE PHOSPHATASE 105 IU/L (42-121); ALT ALANINE AMINOTRANSFERASE 47 IU/L (10-60); AST ASPARTATE AMINOTRANSFERASE 81 IU/L (10-42); BILIRUBIN,TOTAL 0.7 mg/dL (0.2-1.0); BUN - BLOOD UREA NITROGEN 12 mg/dL (6-20); CARBON DIOXIDE - CO2 28 mmol/L (21-32); CHLORIDE 104 mmol/L (101-111); CHOL/HDL RATIO 8.7 (<5.0); CHOLESTEROL 277 mg/dL; CREATININE 0.8 mg/dL (0.6-1.2); GLUCOSE 102 mg/dL (70-100); HDL CHOLESTEROL 32 mg/dL; SODIUM 137 mmol/L (135-145); TOTAL PROTEIN 7.1 g/dL (6.7-8.2)
[2019-12-25 19:34] LABS: LDL CHOLESTEROL,DIRECT 21 mg/dL; LDLD/HDL RATIO 0.7 (<3.6)
== END 2019-12-25 08:01 | disposition home or self-care (01) ==
LOC: LAB.WCP 08:00
PROVIDERS: ATTEND Physician Assistant Medical
DX: G43.909 Migraine, unspecified, not intractable, without status migrainosus (principal); F41.9 Anxiety disorder, unspecified; Z72.89 Other problems related to lifestyle; F17.200 Nicotine dependence, unspecified, uncomplicated
CPT/HCPCS: 36415; 80053; 80061; 83721; 84443; 85025

== ENCOUNTER 2020-03-25 08:00 | Outpatient (CLI) | payer MEDICAID ==
[2020-03-25 18:47] LABS: ALBUMIN 4.1 g/dL (3.2-5.5); ALBUMIN/GLOBULIN RATIO 1.5 (1.0-2.2); ALKALINE PHOSPHATASE 163 IU/L (42-121); ALT ALANINE AMINOTRANSFERASE 169 IU/L (10-60); AST ASPARTATE AMINOTRANSFERASE 347 IU/L (10-42); BILIRUBIN,TOTAL 1.2 mg/dL (0.2-1.0); BUN - BLOOD UREA NITROGEN 12 mg/dL (6-20); CARBON DIOXIDE - CO2 26 mmol/L (21-32); CHLORIDE 105 mmol/L (101-111); CHOL/HDL RATIO 2.4 (<5.0); CHOLESTEROL 138 mg/dL; CREATININE 0.8 mg/dL (0.6-1.2); GLUCOSE 100 mg/dL (70-100); HDL CHOLESTEROL 58 mg/dL; SODIUM 138 mmol/L (135-145); TOTAL PROTEIN 6.8 g/dL (6.7-8.2)
[2020-03-25 19:22] LABS: LDL CHOLESTEROL,DIRECT 30 mg/dL; LDLD/HDL RATIO 0.5 (<3.6)
== END 2020-03-25 23:59 | disposition home or self-care (01) ==
LOC: LAB.WCP 08:00
PROVIDERS: ATTEND Family Medicine
DX: E78.5 Hyperlipidemia, unspecified (principal)
CPT/HCPCS: 36415; 80053; 80061; 83721

== ENCOUNTER 2020-05-22 14:28 | Outpatient (CLI) | payer MEDICAID ==
--- NOTE | 2020-05-22 16:03 | XRAY Report ---
PROCEDURE: Ribs w/PA Chest RT INDICATIONS: RIGHT SIDE RIB PAIN TECHNIQUE: 3 views of the right ribs were acquired, along with a single view chest. COMPARISON: None FINDINGS: Surgical changes and devices: None. Bones and chest wall: There is mild irregularity at the distal most aspect of the left lateral eighth rib. This is predominantly within the cartilaginous portion. No suspicious bony lesions. Overlying soft tissues appear unremarkable. Lungs and pleura: No pleural effusions or pneumothorax. Lungs appear clear. Mediastinum: Mediastinal contours appear normal. Heart size is normal. IMPRESSION: Irregularity within the cartilaginous portion of the distal lateral right eighth rib as above. Recomm end correlation of pain, as injury to this region cannot be excluded. Reviewed by: Patti Franklin MD on 05/22/2020 4:01 PM PDT Approved by: Patti Franklin MD on 05/22/2020 4:01 PM PDT Station ID: [id number]
[2020-05-22 18:59] LABS: ALBUMIN 3.9 g/dL (3.2-5.5); BILIRUBIN,DIRECT 0.3 mg/dL (0.1-0.5); BILIRUBIN,TOTAL 1.1 mg/dL (0.2-1.0); TOTAL PROTEIN 6.7 g/dL (6.7-8.2)
[2020-05-23 13:12] LABS: HEPATITIS B SURFACE ANTIGEN NON-REACTIVE (NON-REACTIVE); HEPATITIS C ANTIBODY NON-REACTIVE (NON-REACTIVE)
== END 2020-05-22 14:29 | disposition home or self-care (01) ==
LOC: DI.WCP 14:28
PROVIDERS: ATTEND Family Medicine
DX: R93.7 Abnormal findings on diagnostic imaging of other parts of musculoskeletal system (principal); R74.8 Abnormal levels of other serum enzymes
CPT/HCPCS: 36415; 80076; 86317; 86704; 86709; 86803; 87340

== ENCOUNTER 2020-11-07 08:00 | Outpatient (CLI) | payer MEDICAID ==
[2020-11-07 18:29] LABS: BASOPHILS # (AUTO) 0.1 10^3/uL (0.0-0.1); BASOPHILS % (AUTO) 0.7 %; EOSINOPHILS # (AUTO) 0.2 10^3/uL (0.0-0.7); HCT - HEMATOCRIT 53.2 % (42.0-52.0); HGB - HEMOGLOBIN 17.8 g/dL (14.0-18.0); LYMPHOCYTES # (AUTO) 1.8 10^3/uL (1.5-3.5); LYMPHOCYTES % (AUTO) 23.7 %; MEAN CORPUSCULAR HEMOGLOBIN 31.1 pg (27.0-31.0); MEAN CORPUSCULAR HGB CONC 33.5 g/dL (32.0-36.0); MEAN PLATELET VOLUME 11.7 fL (7.4-11.4); MONOCYTES # (AUTO) 0.5 10^3/uL (0.0-1.0); MONOCYTES % (AUTO) 6.7 %; NEUTROPHILS # (AUTO) 4.9 10^3/uL (1.5-6.6); NEUTROPHILS % (AUTO) 65.1 %; PLT - PLATELET COUNT 334 10^3/uL (130-450); RED BLOOD COUNT 5.72 10^6/uL (4.70-6.10); RED CELL DISTRIBUTION WIDTH 14.4 % (12.0-15.0); WHITE BLOOD COUNT 7.4 x10^3/uL (4.8-10.8)
[2020-11-07 18:59] LABS: ALBUMIN 4.3 g/dL (3.2-5.5); ALBUMIN/GLOBULIN RATIO 1.4 (1.0-2.2); ALKALINE PHOSPHATASE 91 IU/L (42-121); ALT ALANINE AMINOTRANSFERASE 30 IU/L (10-60); AST ASPARTATE AMINOTRANSFERASE 27 IU/L (10-42); BILIRUBIN,TOTAL 0.6 mg/dL (0.2-1.0); BUN - BLOOD UREA NITROGEN 14 mg/dL (6-20); CALCIUM 9.5 mg/dL (8.5-10.3); CARBON DIOXIDE - CO2 23 mmol/L (21-32); CHLORIDE 105 mmol/L (101-111); CHOL/HDL RATIO 5.7 (<5.0); CHOLESTEROL 223 mg/dL; CREATININE 0.7 mg/dL (0.6-1.2); GFR - MDRD 120 (>89); GLUCOSE 109 mg/dL (70-100); HDL CHOLESTEROL 39 mg/dL; LDL CHOLESTEROL,CALCULATED 118 mg/dL; POTASSIUM 4.3 mmol/L (3.5-5.0); SODIUM 137 mmol/L (135-145); TOTAL PROTEIN 7.3 g/dL (6.7-8.2); TRIGLYCERIDES 328 mg/dL; VLDL CHOLESTEROL 66 mg/dL
[2020-11-07 19:05] LABS: THYROID STIMULATING HORMONE 1.76 uIU/mL (0.34-5.60)
== END 2020-11-07 23:59 | disposition home or self-care (01) ==
LOC: LAB.WCP 08:00
PROVIDERS: ATTEND Physician Assistant Medical
DX: Z00.00 Encounter for general adult medical examination without abnormal findings (principal); E78.5 Hyperlipidemia, unspecified
CPT/HCPCS: 36415; 80053; 80061; 83721; 84443; 85025

== ENCOUNTER 2021-03-28 12:02 | Emergency (ER) | payer MEDICAID ==
[2021-03-28 12:18] VITALS: BP 144/100
--- NOTE | 2021-03-28 12:28 | ED Physician Documentation ---
History of Present Illness - Stated complaint Stated Complaint: RUNNY NOSE/COUGH - Chief complaint Chief Complaint: Resp - History obtained from History obtained from: Patient - History of Present Illness Timing: How many days ago (2-3) Pain level max: 0 Pain level now: 0 - Additonal information Additional information: Patient has been vaccinated for Covid with a [employer] vaccine. 2 daughters are positive for Covid. He has had rhinorrhea, congestion, cough for the past 2 days. Review of Systems Constitutional: denies: Fever Nose: reports: Rhinorrhea / runny nose, Congestion Respiratory: reports: Cough GI: denies: Vomiting PD PAST MEDICAL HISTORY - Past Medical History Cardiovascular: Hypertension Respiratory: None Endocrine/Autoimmune: None GI: Ulcers : None HEENT: None Psych: Anxiety Musculoskeletal: Chronic back pain Derm: None - Past Surgical History Past Surgical History: Yes Ortho: Spine surgery - Present Medications Home Medications: Ambulatory Orders Medication Instructions Recorded Confirmed Losartan [Cozaar] 50 mg PO DAILY 03/28/21 03/28/21 - Allergies Allergies/Adverse Reactions: Allergies Allergy/AdvReac Type Severity Reaction Status Date / Time No Known Drug Allergies Allergy Verified 03/28/21 12:13 - Social History Does the pt smoke?: No Smoking Status: Never smoker Does the pt drink ETOH?: Yes Does the pt have substance abuse?: No - Immunizations Immunizations are current?: Yes - POLST Patient has POLST: No PD ED PE NORMAL - Vitals Vital signs reviewed: Yes - General General: 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, No acute distress - HEENT HEENT: Moist mucous membranes, Pharynx benign - Neck Neck: Supple, no meningeal sign - Cardiac Cardiac: RRR - Respiratory Respiratory: No respiratory distress, Clear bilaterally - Derm Derm: Warm and dry - Neuro Neuro: 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 - Psych Psych: Normal mood, Normal affect Results - Vitals Vitals: Vital Signs - 24 hr 03/28/21 12:12 Temperature 36.8 C Heart Rate 100 Respiratory 19 Rate Blood Pressure 144/100 H O2 Saturation 96 Oxygen O2 Source Room air PD MEDICAL DECISION MAKING - ED course Complexity details: considered differential, d/w patient ED course: Covid testing performed. Patient will self quarantine until results are back. Patient counseled regarding signs and symptoms for which I believe and urgent re -evaluation would be necessary. Patient with good understanding of and agreement to plan and is comfortable going home at this time This document was made in part using voice recognition software. While efforts are made to proofread this document, sound alike and grammatical errors may occur Departure - Departure Disposition: 01 Home, Self Care Clinical Impression: Viral syndrome Condition: Good Instructions: ED Viral Syndrome Follow-Up: your,doctor in 1 week if not better [Other] Comments: You have a Covid test pending. You need to self quarantine until the result is done and negative. Do not leave your house. Do not get near anybody. The results should be done in 48 to 72 hours. We will call with a positive result, the fastest way to get a negative result for confirmation though is to go to the hospital website at [email or web address], click on the my [facility] tab and sign up for the patient portal. If any friends or family get sick and would like to have a Covid test done, but do not have signs or symptoms that would necessitate being hospitalized, we encourage testing through our coronavirus swabbing station, call [phone] to schedule an appointment. Discharge Date/Time: 03/28/21 12:44
== END 2021-03-28 12:44 | disposition home or self-care (01) ==
LOC: ED 12:02
DX: U07.1 COVID-19 (principal); I10 Essential (primary) hypertension
CPT/HCPCS: 99282; 99283

== ENCOUNTER 2021-07-30 12:17 | Emergency (ER) | payer MEDICAID ==
[2021-07-30 12:26] VITALS: BP 138/90
--- NOTE | 2021-07-30 15:08 | ED Physician Documentation ---
PD HPI BACK PAIN - Stated complaint Stated Complaint: LOW BACK PX - Chief complaint Chief Complaint: Back Pain - History obtained from History obtained from: Patient - History of Present Illness Timing - onset: How many weeks ago (2) Timing - duration: Weeks (2) Timing - details: Gradual onset Pain level max: 6 Pain level now: 5 Location: Lower, Right, Left Quality: Pain, Spasm, Similar to prior episodes Associated symptoms: No: Fever, Weakness, Numbness, Incontinent of urine, Unable to urinate, Hematuria, Incontinent of stool Improves with: Rest Worsened by: Movement Contributing factors: No: Lifting, Twisting, Trauma, Anticoagulated, Cancer, IVDA, Out of meds - Additional information Additional information: 51-year-old male presents to the emergency department with acute on chronic back pain. He states that this is similar to his normal back pain flares. He normally takes Robaxin when he has spasms in this normally relieves his symptoms. Does not recall any specific injury. No loss of bowel or bladder control. No fevers. No chills. No trauma. No IV drug use. Review of Systems Constitutional: denies: Fever, Chills GI: denies: Vomiting, Diarrhea Skin: denies: Rash Musculoskeletal: denies: Neck pain Neurologic: denies: Headache PD PAST MEDICAL HISTORY - Past Medical History Cardiovascular: Hypertension Respiratory: None Endocrine/Autoimmune: None GI: Ulcers : None HEENT: None Psych: Anxiety Musculoskeletal: Chronic back pain Derm: None - Past Surgical History Past Surgical History: Yes Ortho: Spine surgery - Present Medications Home Medications: Ambulatory Orders Medication Instructions Recorded Confirmed Losartan [Cozaar] 50 mg PO DAILY 03/28/21 07/30/21 methocarbamoL [Robaxin] 500 mg PO Q6H PRN #20 tablet 07/30/21 - Allergies Allergies/Adverse Reactions: Allergies Allergy/AdvReac Type Severity Reaction Status Date / Time No Known Drug Allergies Allergy Verified 07/30/21 12:26 - Social History Does the pt smoke?: No Smoking Status: Never smoker Does the pt drink ETOH?: Yes Does the pt have substance abuse?: No - Immunizations Immunizations are current?: Yes - POLST Patient has POLST: No PD ED PE NORMAL - Vitals Vital signs reviewed: Yes - General General: 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, No acute distress - HEENT HEENT: Moist mucous membranes - Neck Neck: Supple, no meningeal sign - Cardiac Cardiac: RRR, Strong equal pulses - Respiratory Respiratory: No respiratory distress, Clear bilaterally - Abdomen Abdomen: Soft, Non tender, Non distended - Back Back: No spinal TTP, Other (No midline tenderness to palpation or percussion. No step-off or deformity. Paraspinal spasm bilateral lower lumbar.) - Derm Derm: Warm and dry - Extremities Extremities: No edema, No calf tenderness / cord - Neuro Neuro: 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, No motor deficit, No sensory deficit, Other (Normal bilateral lower extremity patellar and ankle jerk reflexes. Normal great toe extension bilaterally. no saddle anesthesia) - Psych Psych: Normal mood, Normal affect Results - Vitals Vitals: Vital Signs - 24 hr 07/30/21 12:24 Temperature 36.1 C L Heart Rate 85 Respiratory 16 Rate Blood Pressure 138/90 H O2 Saturation 99 Oxygen O2 Source Room air PD MEDICAL DECISION MAKING - ED course Complexity details: considered differential (No cauda equina, no spinal epidural abscess, no fracture, no aortic dissection or evidence of aneursym rupture), d/w patient ED course: 51-year-old male with back spasm. Chronic ongoing issue. We will prescribe Robaxin for home. Patient counseled regarding signs and symptoms for which I believe and urgent re-evaluation would be necessary. Patient with good understanding of and agreement to plan and is comfortable going home at this time This document was made in part using voice recognition software. While efforts are made to proofread this document, sound alike and grammatical errors may occur. No evidence of cauda equina, no epidural abscess. No sciatica. Departure - Departure Disposition: 01 Home, Self Care Clinical Impression: Back spasm Condition: Good Instructions: ED Spasm Back No Trauma Follow-Up: your,doctor in 1 week [Other] Prescriptions: methocarbamoL [Robaxin] 500 mg PO Q6H PRN #20 tablet PRN Reason: muscle spasm Comments: Your prescriptions were sent to [facility] in [place]. Please follow-up with your doctor for further care. Return if you worsen. Continue gentle stretching at home. Discharge Date/Time: 07/30/21 15:15
== END 2021-07-30 15:15 | disposition home or self-care (01) ==
LOC: ED 12:17
DX: M62.830 Muscle spasm of back (principal); G89.29 Other chronic pain; I10 Essential (primary) hypertension
CPT/HCPCS: 99282; 99283

== ENCOUNTER 2024-01-11 12:00 | Outpatient (CLI) | payer MEDICAID ==
--- NOTE | 2024-01-11 16:22 | XRAY Report ---
PROCEDURE: Lumbar Spine 2-3V INDICATIONS: STRAIN OF MUSCLE, FASCIA, AND TENDON OF LOWER BACK TECHNIQUE: 2 views of the lumbar spine were acquired. COMPARISON: None. FINDINGS: Bones: 5 [id number] vertebrae are present. There is normal bony alignment. No vertebral body compression fractures. No suspicious bony lesions. Mild to moderate disc height loss at all levels, with multiple endplate marginal osteophytes. Facet arthrosis of L5-S1. Soft tissues: Overlying bowel gas pattern is normal. No suspicious soft tissue calcifications. 2.9 cm gallstone. IMPRESSION: Mild to moderate, multilevel degenerative disc disease and lower lumbar facet arthrosis. Cholelithiasis. Reviewed by: Luis Griffin MD on 01/11/2024 4:21 PM PDT Approved by: Luis Griffin MD on 01/11/2024 4:21 PM PDT Station ID: [id number]
== END 2024-01-11 12:15 | disposition home or self-care (01) ==
LOC: DI.N 12:00
PROVIDERS: ATTEND Nurse Practitioner
DX: S39.012A Strain of muscle, fascia and tendon of lower back, initial encounter (principal); M47.816 Spondylosis without myelopathy or radiculopathy, lumbar region; M51.36 Other intervertebral disc degeneration, lumbar region; K80.20 Calculus of gallbladder without cholecystitis without obstruction